=== PATIENT | female | born 1975 | race Caucasian/White ===

== ENCOUNTER 2023-03-22 00:12 | Emergency (ER) | payer MEDICAID ==
[~2023-03-22] VITALS: Ht 162.6 cm; Wt 83.0 kg
[2023-03-22 01:04] VITALS: BP 144/96; PULSE 104; RESP 20; TEMP 97.3; O2SAT 100
[2023-03-22] MEDS ORDERED: AMOXICILLIN 500 MG CAP PO ONE (01:55)
[2023-03-22] MEDS ORDERED: IBUPROFEN 800 MG TAB PO ONE (01:55)
[2023-03-22] MEDS ORDERED: CHLO473S62 PO (02:14)
[2023-03-22] MEDS ORDERED: AMOX500C25 PO (02:14)
[2023-03-22] MEDS ORDERED: IBUP-2213 PO (02:14)
[2023-03-22 02:30] VITALS: BP 132/74; PULSE 90; RESP 16; TEMP 97.3; O2SAT 100
== END 2023-03-22 02:30 | disposition home or self-care (01) ==
LOC: MED 00:21
DX: K04.7 Periapical abscess without sinus (principal); F17.200 Nicotine dependence, unspecified, uncomplicated; Z71.6 Tobacco abuse counseling
CPT/HCPCS: 99283